=== PATIENT | female | born 1980 | race Caucasian/White ===

== ENCOUNTER 2022-10-30 10:32 | Emergency (ER) | payer OTHER ==
[~2022-10-30] VITALS: Ht 167.6 cm; Wt 61.2 kg
[2022-10-30 10:34] VITALS: BP_SYST 98
--- NOTE | 2022-10-30 10:58 | NUR ---
PT BIB BLS FROM [facility] C/O GENERILIZED WEAKNESS AND NECK NUMBNESS X 1 DAY. PT DENIES FRIAS, N, V, AND DIARRHEA. PT STATES SPEECH IS SLURRED. PT TORO UE STRENGTH 5+ AND TORO LE 5+. PT STATES HX OF SEIZURES, RA AND A FIB. PT VSS RESTING IN BED WITH RAILS UP
[2022-10-30 11:10] LABS: BASOPHILS % (AUTO) 0.4 % (0.0-2.0); EOSINOPHILS # (AUTO) 0.2 K/uL (0.0-0.4); EOSINOPHILS % (AUTO) 3.9 % (0.0-4.0); HEMATOCRIT 34.3 % (36-48); HEMOGLOBIN 11.1 g/dL (12.0-16.0); LYMPHOCYTES # (AUTO) 1.3 K/uL (1.0-5.5); LYMPHOCYTES % (AUTO) 22.5 % (20.5-51.5); MEAN CORPUSCULAR HEMOGLOBIN 26 pg (27-31); MEAN CORPUSCULAR HGB CONC 32 % (32-36); MEAN CORPUSCULAR VOLUME 80 fL (79.0-98.0); MONOCYTES # (AUTO) 0.6 K/uL (0.0-1.0); MONOCYTES % (AUTO) 10.7 % (1.7-9.3); NEUTROPHILS # (AUTO) 3.5 K/uL (1.8-7.7); NEUTROPHILS % (AUTO) 62.5 % (40.0-70.0); PLATELET COUNT (AUTO) 274 K/uL (130-430); RED BLOOD CELL COUNT(AUTO) 4.29 MIL/uL (4.2-6.2); RED CELL DISTRIBUTION WIDTH 16.2 % (9.0-15.0); WHITE BLOOD COUNT (AUTO) 5.6 K/uL (4.8-10.8)
[2022-10-30 11:21] LABS: ANION GAP 6 (5-15); CALCIUM 8.1 mg/dL (8.4-11.0); CHLORIDE 104 mmol/L (98-107); CREATININE 0.79 mg/dL (0.55-1.30); GFR AFRICAN AMERICAN 103 mL/min (>90); GLUCOSE 109 mg/dL (70-99); UREA NITROGEN, BLOOD 9 mg/dL (8-21)
[2022-10-30 11:25] LABS: PROTHROMBIN TIME 10.7 SECS (9.5-12.5)
[2022-10-30 11:28] LABS: ALANINE AMINOTRANSFERASE 14 U/L (12-78); ALBUMIN 3.4 g/dL (3.4-4.8); ASPARTATE AMINOTRANSFERASE 13 U/L (10-37); TOTAL BILIRUBIN 0.3 mg/dL (0.0-1.0)
--- NOTE | 2022-10-30 12:00 | NUR ---
ER at bedside examining patient.
[2022-10-30] MEDS ORDERED: iohexoL 300 mgI/mL, 150 ML INFUS..BTL IV ONE (12:24)
--- NOTE | 2022-10-30 14:00 | NUR ---
PT BACK FROM CT RESTING COMFORTABLY IN BED VSS
[2022-10-30 14:37] VITALS: BP_SYST 102
--- NOTE | 2022-10-30 14:38 | NUR ---
DPatient given written and verbal discharge instructions and verbalizes understanding. ER MD discussed with patient the results and treatment provided. Patient in stable condition. ID arm band removed. IV catheter removed intact and dressing applied, no active bleeding. Patient educated on TIA and to follow up with PMD. Pain Scale . Opportunity for questions provided and answered. Medication side effect fact sheet provided.
== END 2022-10-30 14:38 | disposition home or self-care (01) ==
LOC: SED 10:32
DX: G45.9 Transient cerebral ischemic attack, unspecified (principal); R47.81 Slurred speech; R42 Dizziness and giddiness; Z79.899 Other long term (current) drug therapy
CPT/HCPCS: 99285; 70496; 80053; 84703; 85025; 85610; 85730; 84484; 36415; 93005; 70498; 81025; 70450; 76376; Q9967